=== PATIENT | female | born 1955 | race Two or more races ===

== ENCOUNTER → 2016-08-06 | Outpatient (CLI) | payer MEDICAID ==
[~2016-08-06] MED LIST: CITALOPRAM HBR20 MG PO; GLUCOPHAGE1000 MG PO; KLONOPIN0.5 MG PO; LEVOTHROID (S100 MCG PO; PRAVACHOL80 MG PO; PRILOSEC20 MG PO; VALSARTAN-HCTZ1 EAC3 PO
--- NOTE | ~2016-08-06 | ESTC ---
Cardiac Perfusion Imaging Demographics Patient Name ISAK Wellington Gender Female Patient Number [id number] Race Other Visit Number [id number] Ethnicity [employer] ID Room Number Accession Number [id number] Height Date of 1955 Weight Age 61 year(s) BSA Referring Rosy Bustillo MD BMI Physician Abelardo Jimenez MD Interpreting CNC Date of study 08/06/2016 Physician Rosy Bustillo MD Supervising /MLP Rayna Isaacs APRN Technologist Ordering Physician Rosy Bustillo MD Stress Roettger Dru crop and soil technician RDCS, RVT Stress ECG Reading Rayna Isaacs APRN Procedure Procedure Type: Nuclear Stress Test:Pharmacological, Lexiscan, Cardiolite Stress Test Procedure Start time: 08/06/2016 08:53 Indications: Dyspnea with exertion. Risk Factors The patient risk factors include:obesity, former tobacco use, treated hypercholesterolemia, treated hypertension, family history of premature CAD, orally-treated diabetes mellitus and ( years not smokin). Conclusions Summary Cardiolite SPECT images demonstrate an anterior and anteroseptal reversible defect of moderate severity. No evidence of underlying fixed defect. Normal TID ratio Gated images demonstrate mild anterior hypokinesis with overall normal left ventricular systolic function. LVEF is 62% Stress Protocols Resting ECG RSR without ST or T wave changes. Resting HR:86 bpm Resting BP:167/82 mmHg Pre-stress physical exam: Pharmacologic stress testing was performed due to patient has bad knees . Stress Protocol:Pharmacologic Predicted HR: 160 bpm HR response: Appropriate BP response: Appropriate Reason for termination:Infusion complete ECG Findings No ECG changes suggestive of ischemia. Arrhythmias No rhythm abnormality. Symptoms Shortness of breath. Stress Interpretation Appropriate hemodynamic response to Lexiscan. No significant ST-T wave changes with Lexiscan. ECG portion is negative for ischemia by diagnostic criteria. Stress supervision and interpretation provided by Elizabeth Way APRN . Imaging Results Applied corrections - Motion correction applied High risk findings Summed scores - Summed stress score: 11 - Summed rest score: 14 - Summed difference score: -3 Stress ejection Ejection fraction:62 % EDV :102 ml ESV :39 ml Stroke volume :63 ml LV mass :131 gr Imaging Protocols Rest Stress Isotope:Tc99m Sestamibi IV Isotope: Tc99m Sestamibi IV Isotope dose:16.2 mCi Isotope dose:46.8 mCi Date:08/06/2016 07:36 Date:08/06/2016 09:12 Technique: SPECT Technique: Gated Supine SPECT Supine Scan Time:45-60 minutes post Scan Time:45-60 minutes post injection injection Procedure Medications - Regadenoson (Lexiscan) 0.4 mg IV over 10-15 sec. I.V. 0.4 mg. Medical History Admission Data Admission date: 08/06/2016 Admission Time: 07:20 Hospital Status: Outpatient. Signatures dtt: Keny Gallegos (cardio) dtd: 08/06/16 0853 Physician Self Edit
== END | disposition disaster alternative care site (69) ==
LOC: GRAD 07:20
DX: R06.09 Other forms of dyspnea (principal); E11.9 Type 2 diabetes mellitus without complications; E66.9 Obesity, unspecified; E78.00 Pure hypercholesterolemia, unspecified
CPT/HCPCS: A9500; J2785

== ENCOUNTER 2016-08-24 06:09 | Outpatient (CLI) | payer MEDICAID ==
[~2016-08-24] VITALS: Ht 162.6 cm; Wt 154.2 kg
--- NOTE | ~2016-08-24 | CATH ---
Cardiac Diagnostic Report Demographics Patient Name ISAK Wellington Gender Female Date of 1955 Age 61 year(s) Patient Number [id number] Date of Study 08/24/2016 Visit Number [id number] Room Number [id number] [place] [id number] Ht 162.56 cm Wt 154.2 kg Referring Abelardo Jimenez MD Primary Physician Physician Performing Rosy Bustillo MD Secondary Physician Physician Diagnostic Rosy Bustillo MD Assisting Physician Physician Interventional Physician Computer Forwarding System Markup Clerk Physician Findings and Conclusions Diagnostic Findings and Conclusion Non-obstructive CAD. LVEDP 15. Diagnostic Recommendations Medical therapy. Procedure Description The patient was brought to the diagnostic cardiac catheterization-EP laboratory in the fasting, non-sedated state. Informed consent was obtained in the written and verbal form after the risks and benefits were explained. The patient had no further questions and agreed to proceed. The planned puncture-incision site(s) were shaved and prepped with ChloraPrep and draped in the usual sterile manner. Conscious sedation and pain control medications were delivered by a registered nurse under physician guidance. Surface ECG rhythm, blood pressure measurement, and pulse oximetry were monitored throughout the procedure. Arterial access. The access site was infiltrated with lidocaine. The vessel was entered with the Seldinger technique. A sheath was advanced into the vessel and used for catheter placement. Selective left coronary angiography. A catheter was advanced into the left coronary vessel ostium under Fluoroscopic guidance. Contrast was injected by hand. Images were obtained in multiple projections. Selective right coronary angiography. A catheter was advanced into the right coronary vessel ostium under fluoroscopic guidance. Contrast was injected by hand. Images were obtained in multiple projections. Left heart catheterization. A catheter was advanced across the aortic valve to the left ventricle under fluoroscopic guidance. Resting hemodynamics were obtained. Arterial artery hemostasis was achieved. The patient was transferred to a regular nursing floor via cart accompanied by a nurse. The patient left the laboratory in stable condition. Diagnostic Cath Status: Elective Procedure Procedure Type Diagnostic procedure:Angiography:, Coronary Angios w/[facility] Indications: Abnormal Stress Test and Dyspnea with exertion. The procedure was explained in detail to the patient. Risks, complications and alternative treatments were reviewed. Written consent was obtained. Medications Reviewed with Patient prior to Procedure. Angiographic Findings Dominance: Right Cardiac Arteries and Lesion Findings LMCA: Normal (0% Stenosis).Large. LAD: Normal (0% Stenosis).Large proximally. Medium mid to distal. Diag 1 large, normal. LCx: Normal (0% Stenosis).Non-dominant, large. OM large, normal. RCA: Normal (0% Stenosis).Large, dominant. PL medium, normal. PDA medium, normal. Procedure Data Procedure Date Date: 08/24/2016Start: 10:50 AMEnd: 11:31 AM Entry Locations - Retrograde Percutaneous access was performed through the Right Radial artery (Primary location). A 6 Fr sheath was inserted. Unsuccessful closure attempt was performed using: a TR band. Hemostasis was successfully obtained using Mechanical Compression. Closure Comments: 17 ml of air in R. Band by Leonel Pradhan . Procedure Medications Order and Administration + + + +--------+ !Time !Medication !Dosage !Route ! + + + +--------+ 08/24/2016 10:47 AM !Versed !1 mg !I.V. ! + + + +--------+ 08/24/2016 10:49 AM !Fentanyl !50 mcg !I.V. ! + + + +--------+ 08/24/2016 10:59 AM !Radial Verapamil !3 mg !I.A. ! + + + +--------+ !08/24/2016 10:59 AM !Radial Nitroglycerin !200 mcg !I.A. ! + + + +--------+ !08/24/2016 10:59 AM !Radial Heparin (ACC_3) !5000 units !I.A. ! + + + +--------+ Devices Used - A6 Fr. BS JR 4 Diag. Catheterwas used for:Right coronary angiography. - A6 Fr. BS JL 3.5 Diag. Catheterwas used for:Left coronary angiography. - A6 Fr. BS Angled Pigtail Diag. Catheterwas used for:LV Pressures. Contrast Material - Isovue [id number] ml Fluoroscopy Time: Diagnostic: 11:18 minutes. Total: 11:18 minutes. Fluoroscopy Dose: Diagnostic: 1283 mGy. Total: 1283 mGy. Estimated Blood Loss: 3 ml. Medical History Performed Procedures and Imaging Results - Stress testing with SPECT MPIwas performed. Results were: Positive. Allergies - Other:(propoxyphene darvocet). Risk Factors The patient risk factors include:obesity, hypercholesterolemia, hypertension, orally-treated diabetes mellitus, last creatinine: 0.8 mg/dl, creatinine clearance: 182.04 ml/min, dyslipidemia and former tobacco use. Admission Data Admission Date: 08/24/2016 Admission Time: 06:09 AM Admit Source: Other Admission Medications + +------+-------+ + + + + !Medication!Dosage!Times !Last !Last !Administered !Comments ! ! ! !Per Day!Delivery !Delivery ! ! ! ! ! ! !Date !Time ! ! ! + +------+-------+ + + + + !Statin ! ! ! ! ! ! ! !(any) ! ! ! ! ! ! ! + +------+-------+ + + + + !ARB (any) ! ! ! ! ! ! ! + +------+-------+ + + + + Clinical Evaluation Leading to Procedure - The patient's CAD presentation was assessed as: Stable angina. - The patient's anginal syndrome during the past two weeks was assessed as: Class III according to the [place] Cardi[employer] Classification System (CCS). Hemodynamics Condition: Rest O2 Consumption: Estimated: 236.97Heart Rate: 75 bpm Pressures (mmHg) +-----+ + !Site !Pressure ! +-----+ + !AO !135/80 (105) ! +-----+ + !LV !141/5 ,15 ! +-----+ + !LV !140/4 ,12 ! +-----+ + !AO !144/71 (104) ! +-----+ + !LV !141/5 ,15 ! +-----+ + !AO !143/70 (103) ! +-----+ + Valve Gradients and Areas + +---------+---------+---------+ +---------+ + !Valve !Peak !Mean !Area !Index !Flow !Source ! + +---------+---------+---------+ +---------+ + !Aortic !0 !0 ! ! ! ! ! + +---------+---------+---------+ +---------+ + !Aortic !0 !0 ! ! ! ! ! + +---------+---------+---------+ +---------+ + Shunts Oxygen Values O2 Capacity 170 O2 Consumption 236.97 Discharge Data Discharge Date: 08/24/2016 Hospital Status: Outpatient Signatures dtt: Keny Gallegos (cardio) dtd: 08/24/16 1050 Physician Self Edit
== END 2016-08-24 14:00 | disposition disaster alternative care site (69) ==
LOC: GCAT 06:09 → GPCU 06:09 → GCAT 14:00
DX: I20.8 Other forms of angina pectoris (principal); I10 Essential (primary) hypertension; E78.00 Pure hypercholesterolemia, unspecified; E11.9 Type 2 diabetes mellitus without complications; Z79.84 Long term (current) use of oral hypoglycemic drugs; E03.9 Hypothyroidism, unspecified; E66.01 Morbid (severe) obesity due to excess calories; F32.9 Major depressive disorder, single episode, unspecified; Z68.43 Body mass index [BMI] 50.0-59.9, adult; R94.39 Abnormal result of other cardiovascular function study; Z87.891 Personal history of nicotine dependence; Z79.899 Other long term (current) drug therapy; Z82.49 Family history of ischemic heart disease and other diseases of the circulatory system
CPT/HCPCS: C1894; J1644; J2250; J3010; J7030